=== PATIENT | male | born 2000 | race Two or more races ===

== ENCOUNTER 2021-12-12 16:42 | Emergency (ER) | payer SELFPAY ==
[2021-12-12] MEDS ORDERED: Ketorolac 60 MG/2 ML SDV IM ONE (19:23)
[2021-12-12] MEDS ORDERED: Orphenadrine 100 MG Tab.ER PO STA (19:23)
== END 2021-12-12 20:20 | disposition home or self-care (01) ==
LOC: JD.ED 16:42
DX: S12.601A Unspecified nondisplaced fracture of seventh cervical vertebra, initial encounter for closed fracture (principal); X50.0XXA Overexertion from strenuous movement or load, initial encounter; Y99.0 Civilian activity done for income or pay
CPT/HCPCS: 72125; 96372; 99283; A9270; J1885